=== PATIENT | female | born 1995 ===

== ENCOUNTER → 2016-06-18 | Outpatient (CLI) | payer MEDICAID ==
[2016-06-18 10:21] LABS: Basophils # (auto) 0 uL; Basophils % (auto) 0.2 % (0.0-2.0); Eosinophils # (auto) 0.1 uL; Hematocrit 37.8 % (36.0-46.0); Hemoglobin 12.9 g/dL (12.2-16.2); Lymphocytes # (auto) 1.4 uL; Lymphocytes % (auto) 15.3 % (10.0-50.0); Mean Corpuscular Hgb Conc. 34.1 g/dL (32.0-36.0); Mean Corpuscular Volume 96.8 fL (80.0-100.0); Mean Platelet Volume 9.1 fL (7.4-10.4); Monocytes # (auto) 0.8 uL; Monocytes % (auto) 8.6 % (0.0-12.0); Neutrophils # (auto) 7.1 uL; Neutrophils % (auto) 74.9 % (37.0-80.0); Platelet Count (auto) 222 10^3/uL (140-450); Red Cell Distribution Width 13.5 % (11.6-16.0); White Blood Cell 9.5 10^3/uL (4.4-10.8)
== END | disposition home or self-care (01) ==
LOC: LAB 09:53
PROVIDERS: ATTEND Specialist
DX: Z34.80 Encounter for supervision of other normal pregnancy, unspecified trimester (principal); Z11.3 Encounter for screening for infections with a predominantly sexual mode of transmission; N76.0 Acute vaginitis
CPT/HCPCS: 36415; 85025; 86592; 87081

== ENCOUNTER 2016-07-17 13:30 | Observation (INO) | payer MEDICAID ==
[~2016-07-17] VITALS: Ht 160 cm; Wt 78.9 kg
[2016-07-17] MEDS ORDERED: PREN-96 PO (14:14)
== END 2016-07-17 15:50 | disposition home or self-care (01) | DRG 566 ==
LOC: LDRP 13:30
PROVIDERS: ADMIT Specialist; ATTEND Specialist
DX: O46.93 Antepartum hemorrhage, unspecified, third trimester (principal); O26.893 Other specified pregnancy related conditions, third trimester; R10.2 Pelvic and perineal pain; R10.30 Lower abdominal pain, unspecified; M54.9 Dorsalgia, unspecified; Z3A.39 39 weeks gestation of pregnancy
CPT/HCPCS: 59025; 76818; 81002; G0378

== ENCOUNTER 2016-07-18 23:30 | Observation (INO) | payer MEDICAID ==
[~2016-07-18 23:30] MED LIST: PREN-96 PO
== END 2016-07-19 00:47 | disposition home or self-care (01) | DRG 566 ==
LOC: LDRP 23:30
PROVIDERS: ADMIT Specialist; ATTEND Specialist
DX: O62.9 Abnormality of forces of labor, unspecified (principal); Z3A.40 40 weeks gestation of pregnancy
CPT/HCPCS: 59025; 81002; G0378